=== PATIENT | male | born 1960 | race Caucasian/White ===

== ENCOUNTER → 2020-01-06 07:06 | Outpatient (CLI) | payer BC, SELFPAY ==
[2020-01-06 08:05] LABS: Add Manual Diff / Slide Review NO; Alanine Aminotransferase 36 IU/L (<50); Albumin 4.6 g/dL (3.5-5.0); Albumin Globulin Ratio 1.8 (1.0-2.8); Alkaline Phosphatase 46 U/L (38-126); Aspartate Aminotransferase 41 IU/L (17-59); BUN Creatinine Ratio 21.4 (6-22); Basophils Absolute Auto 100 /uL (0-100); Basophils Percent Auto 1.9 % (0-2); Bilirubin Total 1.6 mg/dL (0.2-1.3); Blood Urea Nitrogen 18 mg/dL (9-20); Calcium 9.8 mg/dL (8.4-10.2); Carbon Dioxide 31 mmol/L (22-32); Chloride 103 mmol/L (98-107); Cholesterol 149 mg/dL (140-199); Eosinophils Absolute Auto 200 /uL (0-450); Eosinophils Percent Auto 4.6 % (2-4); Estimated Glomerular Filt Rate > 60.0 mL/min (>60); Globulin 2.6 g/dL (1.7-4.1); Glucose 94 mg/dL (80-110); HDL Cholesterol 49 mg/dL (40-60); HEMOLYSIS < 15 (0-50); Hematocrit 47.3 % (41-53); Hemoglobin 15.9 g/dL (13.5-17.5); LDL Cholesterol Calculated 88 mg/dL (<100); Lymphocytes Absolute Auto 900 /uL (1100-4500); Lymphocytes Percent Auto 17.7 % (25-40); Mean Corpuscular HGB Conc 33.6 % (30-36); Mean Corpuscular Hemoglobin 32.6 PG (26-34); Mean Corpuscular Volume 97.2 fL (80-100); Monocytes Absolute Auto 400 /uL (0-900); Neutrophils Absolute Auto 3600 /uL (1500-7000); Neutrophils Percent Auto 68.8 % (50-75); Platelet Count 146 X10^3/uL (150-400); Potassium 4.6 mmol/L (3.4-5.1); Red Blood Cell Count 4.86 X10^6/uL (4.5-5.9); Red Cell Distribution Width 12.7 % (11.6-14.8); Sodium 139 mmol/L (137-145); Total Protein 7.2 g/dL (6.3-8.2); Triglycerides 59 mg/dL (35-150); White Blood Cell Count 5.3 X10^3/uL (4.5-11.0)
[2020-01-06 08:35] LABS: Prostate Specific Antigen Scrn 1.92 ng/mL (0.1-4.0)
[2020-01-06 08:44] LABS: Vitamin D 25 Hydroxy (D3) 67.3 ng/mL (30.0-100.0)
[2020-01-06 08:58] LABS: TSH w/ Reflex to FT4 3.28 uIU/mL (0.47-4.68)
== END ==
PROVIDERS: PCP Family Medicine; Referring Provider Family Medicine; Visit Provider Family Medicine
DX: Z00.00 Encounter for general adult medical examination without abnormal findings (principal); Z12.5 Encounter for screening for malignant neoplasm of prostate; Z13.1 Encounter for screening for diabetes mellitus; Z13.6 Encounter for screening for cardiovascular disorders
CPT/HCPCS: 36415; 80053; 80061; 82306; 84443; 85025; G0103

== ENCOUNTER → 2020-07-17 09:53 | Outpatient (CLI) | payer BC, SELFPAY ==
--- NOTE | 2020-07-17 09:55 | DI.RAD.S_ITS ---
PROCEDURE: XR LUMBAR SPINE 2-3V INDICATIONS: lbp TECHNIQUE: 3 views of the lumbar spine were acquired. COMPARISON: None. FINDINGS: Bones: 5 [id number]-reu-iolhehn vertebrae are present. There is grade 1 retrolisthesis of L2 on L3. Degenerative endplate changes and bilateral facet arthrosis throughout lumbar spine is seen more prominent at L2-3 and L5-S1 levels. No vertebral body compression fractures. No suspicious bony lesions. Soft tissues: Overlying bowel gas pattern is normal. No suspicious soft tissue calcifications. IMPRESSION: No lumbar spine compression fracture. Grade 1 retrolisthesis of L2 on L3. Degenerative disc disease throughout lumbar spine as above. Dictated by: Twan Peguero M.D. on 07/17/2020 at 10:31 Approved by: Twan Peguero M.D. on 07/17/2020 at 10:32
== END ==
PROVIDERS: PCP Family Medicine; Referring Provider Family Medicine; Visit Provider Family Medicine
DX: M54.5 Low back pain (principal); M51.36 Other intervertebral disc degeneration, lumbar region; M51.37 Other intervertebral disc degeneration, lumbosacral region; M47.816 Spondylosis without myelopathy or radiculopathy, lumbar region; M47.817 Spondylosis without myelopathy or radiculopathy, lumbosacral region; M43.16 Spondylolisthesis, lumbar region; G89.29 Other chronic pain
CPT/HCPCS: 72100